=== PATIENT | male | born 1965 | race Caucasian/White ===

== ENCOUNTER 2019-02-17 07:39 | Emergency (ER) | payer MEDICAID ==
[~2019-02-17] VITALS: Ht 175.3 cm; Wt 99.4 kg
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
[2019-02-17] MEDS ORDERED: LORazepam 1MG TABLET PO ONE (08:30)
--- NOTE | 2019-02-17 08:33 | NUR ---
PT HAS C/O CP. STATES TO THIS RN THAT IT STARTED 45 MIN CLAIMS ADJUDICATOR TO ED. EKG COMPLETED. ABDOUL WOOD NOTIFIED.
[2019-02-17] MEDS ORDERED: LORazepam 1MG TABLET ONE (08:34)
[2019-02-17 08:35] LABS: BASOPHILS # (AUTO) 0.05 x10^3/uL (0-0.1); BASOPHILS % (AUTO) 1 % (0-1); EOSINOPHILS # (AUTO) 0.02 x10^3/uL (0-0.4); EOSINOPHILS % (AUTO) 0 % (1-7); LYMPHOCYTES # (AUTO) 1.12 x10^3/uL (1-3.4); LYMPHOCYTES % (AUTO) 14 % (22-44); MD NO; MEAN CORPUSCULAR HEMOGLOBIN 30.2 pg (27.5-34.5); MEAN CORPUSCULAR HGB CONC 33.4 g/dL (33.2-36.2); MEAN CORPUSCULAR VOLUME 90.3 fL (81-97); MEAN PLATELET VOLUME 10.4 fL (7.4-10.4); MONOCYTES # (AUTO) 0.39 x10^3/uL (0.2-0.8); MONOCYTES % (AUTO) 5 % (2-9); NEUTROPHILS # (AUTO) 6.16 x10^3/uL (1.8-6.8); NEUTROPHILS % (AUTO) 80 % (42-75); PLATELET COUNT 174 x10^3/uL (130-400); RED BLOOD COUNT 4.88 x10^6/uL (4.38-5.82); RED CELL DISTRIBUTION WIDTH 14.6 % (9.4-14.8)
--- NOTE | 2019-02-17 08:37 | NUR ---
PT PROVIDED W/ SI BREAKFAST TRAY.
[2019-02-17 08:46] LABS: ALBUMIN 4.5 g/dL (3.4-5.0); ANION GAP 9 mmol/L (5-15); CALCIUM 9.1 mg/dL (8.5-10.1); CHLORIDE 104 mmol/L (98-107); CREATININE 1.25 mg/dL (0.7-1.3)
[2019-02-17 08:48] LABS: SALICYLATE LEVEL < 1.7 mg/dL (2.8-20.0)
[2019-02-17] MEDS ORDERED: ABILIFY IM (08:51)
[2019-02-17] MEDS ORDERED: QUET25TA5 PO (08:51)
[2019-02-17] MEDS ORDERED: QUET200T4 PO (08:51)
[2019-02-17] MEDS ORDERED: WELLBUTRIN PO (08:51)
[2019-02-17] MEDS ORDERED: LAMICTAL PO (08:51)
[2019-02-17] MEDS ORDERED: ABILIFY PO (08:51)
[2019-02-17 08:56] LABS: AMPHETAMINE SCREEN, URINE Negative (Negative); BARBITURATE SCREEN, URINE Negative (Negative); BENZODIAZEPINE SCREEN, URINE Negative (Negative); CANNABINOID SCREEN, URINE Negative (Negative); COCAINE SCREEN, URINE Negative (Negative); METHADONE SCREEN, URINE Negative (Negative); OPIATE SCREEN, URINE Negative (Negative)
--- NOTE | 2019-02-17 09:56 | NUR ---
SHUBHAM NEFF. ISAI. SITTER REMAINS AT BEDSIDE. ROOM REMAINS SECURE.
[2019-02-17] MEDS ORDERED: ACETAMINOPHEN 325 MG TABLET PO ONE (10:00)
[2019-02-17] MEDS ORDERED: ACETAMINOPHEN 325 MG TABLET ONE (10:02)
--- NOTE | 2019-02-17 10:24 | NUR ---
PT RESTING ON AISHWARYA. ISAI. SITTER REMAINS AT BEDSIDE. ROOM REMAINS SECURE.
[2019-02-17] MEDS ORDERED: QUETIAPINE 25MG TABLET ONE (11:22)
--- NOTE | 2019-02-17 11:26 | NUR ---
Dr. Ren accepting. Mae DONOVAN accepting. Ready to go now.
[2019-02-17 11:27] VITALS: BP 125/79
--- NOTE | 2019-02-17 11:29 | NUR ---
REPORT RC'VD FROM ROB DONOVAN. PT AWAKE, CALM, WATCHING TV IN [facility]. C/O ANXIETY AND HEARING VOICES. STATES ATIVAN EARLIER HELPED "A LITTLE". ERP NOTIFIED, PT MEDICATED WITH HOME MED SEROQUEL. RV'WD POC WITH PT, ALL NEEDS ADDRESSED. VSS. SITTER OUTSIDE ROOM.
[2019-02-17] MEDS ORDERED: QUETIAPINE 25MG TABLET PO SCH (11:30)
--- NOTE | 2019-02-17 11:33 | NUR ---
THROUGHPUT: PT ACCEPTED ON 3E. FAXED OVER LEGAL HOLD
--- NOTE | 2019-02-17 12:30 | NUR ---
PT EATING LUNCH TRAY, CONVERSING WITH SITTER, CALM, COOPERATIVE.
[2019-02-17] MEDS ORDERED: BUPR100T7 PO (15:15)
[2019-02-17] MEDS ORDERED: QUET25TA70 PO (15:19)
[2019-02-17] MEDS ORDERED: ARIP30TA22 PO (15:19)
== END 2019-02-18 07:09 | disposition other institution (70) ==
LOC: ED 11:47
DX: F33.9 Major depressive disorder, recurrent, unspecified (principal)
CPT/HCPCS: 36415; 80048; 80307; 82040; 85025; 93005; 99284

== ENCOUNTER 2019-02-17 12:02 | Inpatient (IN) | payer MEDICAID ==
[~2019-02-17] VITALS: Ht 175.3 cm; Wt 100.4 kg
[~2019-02-17 12:02] MED LIST: ABILIFY IM; ABILIFY PO; LAMICTAL PO; QUET200T4 PO; QUET25TA5 PO; WELLBUTRIN PO
[2019-02-17] MEDS ORDERED: DOCUSATE 100 MG CAPSULE PO PRN (12:30)
[2019-02-17] MEDS ORDERED: POLYETHYLENE GLYCOL 17 GM PACKET PO PRN (12:30)
[2019-02-17] MEDS ORDERED: BISACODYL 10 MG SUPP PR PRN (12:30)
[2019-02-17] MEDS ORDERED: ONDANSETRON ODT 4 MG PO PRN (12:30)
[2019-02-17] MEDS ORDERED: FLU VACC QS2019-20 36MOS UP/PF 0.5 ML IM ONE (13:00)
[2019-02-17] MEDS: PLEASE ENTER HEIGHT AND WEIGHT MC SCH ×2 (13:30→20:30)
[2019-02-17 13:58] LABS: MICROSCOPIC NOT IND
[2019-02-17 14:01] LABS: CULTURE INDICATED? NO
[2019-02-17 14:22] VITALS: BP 128/75
[2019-02-17 14:52] LABS: TROPONIN I < 0.015 ng/mL (0.000-0.045)
[2019-02-17] MEDS ORDERED: BUPR100T7 PO (15:15)
[2019-02-17] MEDS ORDERED: ARIP30TA22 PO (15:19)
[2019-02-17] MEDS ORDERED: QUET25TA70 PO (15:19)
[2019-02-17] MEDS: METOPROLOL TARTRATE 25 MG TABLET PO SCH (17:58)
[2019-02-17 19:54] VITALS: BP 145/78
[2019-02-17] MEDS: ATORVASTATIN 20 MG TABLET PO SCH (20:30)
[2019-02-17] MEDS: LAMOTRIGINE 100 MG TABLET PO SCH (20:30)
[2019-02-18] MEDS: METOPROLOL TARTRATE 25 MG TABLET PO SCH ×2 (05:57→18:03)
[2019-02-18 06:56] LABS: CHOL/HDL RATIO 4.8; FREE T4 (FREE THYROXINE) 0.68 ng/dL (0.76-1.46); LDL/HDL RATIO 3.2 (0.5-3.0)
[2019-02-18 07:12] VITALS: BP 116/76
[2019-02-18] MEDS: NICOTINE 21 MG/24 HR PATCH.TD24 TD SCH (08:11)
[2019-02-18] MEDS: LAMOTRIGINE 100 MG TABLET PO SCH ×2 (08:11→08:14)
[2019-02-18] MEDS: ACETAMINOPHEN 325 MG TABLET PO PRN ×2 (08:21→20:15)
[2019-02-18] MEDS ORDERED: NICOTINE 7 MG/24 HR PATCH.TD24 TD SCH ×2 (09:00)
[2019-02-18] MEDS: LORazepam 1MG TABLET PO PRN (14:01)
[2019-02-18 19:12] VITALS: BP 147/87
[2019-02-18] MEDS: ATORVASTATIN 20 MG TABLET PO SCH (20:15)
[2019-02-18] MEDS: CARBAMAZEPINE XR 200 MG TABLET PO SCH (20:15)
[2019-02-18] MEDS: QUETIAPINE 100MG TABLET PO SCH (20:15)
[2019-02-19] MEDS: LORazepam 1MG TABLET PO PRN ×3 (00:35→20:18)
[2019-02-19] MEDS: METOPROLOL TARTRATE 25 MG TABLET PO SCH ×2 (06:13→17:59)
[2019-02-19 07:40] VITALS: BP 108/66
[2019-02-19] MEDS: ACETAMINOPHEN 325 MG TABLET PO PRN ×2 (08:46→20:18)
[2019-02-19] MEDS: NICOTINE 21 MG/24 HR PATCH.TD24 TD SCH (08:48)
[2019-02-19 18:00] VITALS: BP 119/69
[2019-02-19] MEDS: CARBAMAZEPINE XR 200 MG TABLET PO SCH (20:18)
[2019-02-19] MEDS: ATORVASTATIN 20 MG TABLET PO SCH (20:18)
[2019-02-19] MEDS: QUETIAPINE 100MG TABLET PO SCH (20:18)
[2019-02-19 20:26] VITALS: BP 110/69
[2019-02-20] MEDS: METOPROLOL TARTRATE 25 MG TABLET PO SCH ×4 (05:44→20:22)
[2019-02-20 07:40] VITALS: BP 159/97
[2019-02-20] MEDS: NICOTINE 21 MG/24 HR PATCH.TD24 TD SCH (07:59)
[2019-02-20] MEDS: LORazepam 1MG TABLET PO PRN ×2 (08:07→20:22)
[2019-02-20] MEDS: ACETAMINOPHEN 325 MG TABLET PO PRN ×2 (08:07→20:22)
[2019-02-20 19:35] VITALS: BP 138/80
[2019-02-20] MEDS: QUETIAPINE 100MG TABLET PO SCH (20:22)
[2019-02-20] MEDS: CARBAMAZEPINE XR 200 MG TABLET PO SCH (20:22)
[2019-02-20] MEDS: ATORVASTATIN 20 MG TABLET PO SCH (20:22)
[2019-02-21] MEDS: LORazepam 1MG TABLET PO PRN ×3 (00:12→20:13)
[2019-02-21 07:26] VITALS: BP 117/73
[2019-02-21] MEDS: METOPROLOL TARTRATE 25 MG TABLET PO SCH ×2 (08:41→20:13)
[2019-02-21] MEDS: NICOTINE 21 MG/24 HR PATCH.TD24 TD SCH (08:42)
[2019-02-21 19:43] VITALS: BP 122/77
[2019-02-21] MEDS: QUETIAPINE 100MG TABLET PO SCH (20:13)
[2019-02-21] MEDS: CARBAMAZEPINE XR 200 MG TABLET PO SCH (20:13)
[2019-02-21] MEDS: ATORVASTATIN 20 MG TABLET PO SCH (20:13)
[2019-02-21] MEDS: ACETAMINOPHEN 325 MG TABLET PO PRN (20:13)
[2019-02-22 07:02] VITALS: BP 135/79
[2019-02-22] MEDS: NICOTINE 21 MG/24 HR PATCH.TD24 TD SCH (08:14)
[2019-02-22] MEDS: METOPROLOL TARTRATE 25 MG TABLET PO SCH ×2 (08:14→16:59)
[2019-02-22 19:32] VITALS: BP 100/61
[2019-02-22] MEDS: CARBAMAZEPINE XR 200 MG TABLET PO SCH (20:01)
[2019-02-22] MEDS: QUETIAPINE 100MG TABLET PO SCH (20:02)
[2019-02-22] MEDS: ATORVASTATIN 20 MG TABLET PO SCH (20:03)
[2019-02-23] MEDS: METOPROLOL TARTRATE 25 MG TABLET PO SCH ×2 (06:05→18:31)
[2019-02-23] MEDS: LORazepam 1MG TABLET PO PRN ×2 (06:11→22:02)
[2019-02-23 07:21] VITALS: BP 109/73
[2019-02-23] MEDS: NICOTINE 21 MG/24 HR PATCH.TD24 TD SCH (08:33)
[2019-02-23 18:11] VITALS: BP 118/78
[2019-02-23] MEDS: CARBAMAZEPINE XR 200 MG TABLET PO SCH (22:03)
[2019-02-23] MEDS: QUETIAPINE 100MG TABLET PO SCH (22:03)
[2019-02-23] MEDS: ATORVASTATIN 20 MG TABLET PO SCH (22:03)
[2019-02-23] MEDS ORDERED: CALCIUM CARBONATE 500 MG TAB.CHEW PO PRN (23:30)
[2019-02-24] MEDS: METOPROLOL TARTRATE 25 MG TABLET PO SCH ×2 (05:24→17:43)
[2019-02-24 07:15] VITALS: BP 103/69
[2019-02-24] MEDS: NICOTINE 21 MG/24 HR PATCH.TD24 TD SCH (09:01)
[2019-02-24 19:34] VITALS: BP 129/83
[2019-02-24] MEDS: CARBAMAZEPINE XR 200 MG TABLET PO SCH (20:56)
[2019-02-24] MEDS: ATORVASTATIN 20 MG TABLET PO SCH (20:56)
[2019-02-24] MEDS: LORazepam 1MG TABLET PO PRN (20:56)
[2019-02-24] MEDS: QUETIAPINE 100MG TABLET PO SCH (20:57)
[2019-02-24] MEDS: PRAZOSIN 2 MG CAPSULE PO SCH (21:00)
[2019-02-25] MEDS: METOPROLOL TARTRATE 25 MG TABLET PO SCH ×2 (06:03→18:10)
[2019-02-25 07:22] VITALS: BP 122/83
[2019-02-25] MEDS: NICOTINE 21 MG/24 HR PATCH.TD24 TD SCH (08:25)
[2019-02-25 19:00] VITALS: BP 113/68
[2019-02-25] MEDS: LORazepam 1MG TABLET PO PRN (20:47)
[2019-02-25] MEDS: PRAZOSIN 2 MG CAPSULE PO SCH (20:47)
[2019-02-25] MEDS: QUETIAPINE 100MG TABLET PO SCH (20:47)
[2019-02-25] MEDS: CARBAMAZEPINE XR 200 MG TABLET PO SCH (20:48)
[2019-02-25] MEDS: ATORVASTATIN 20 MG TABLET PO SCH (20:48)
[2019-02-26] MEDS: METOPROLOL TARTRATE 25 MG TABLET PO SCH ×2 (06:05→18:17)
[2019-02-26 07:47] VITALS: BP 112/75
[2019-02-26] MEDS: LORazepam 1MG TABLET PO PRN ×3 (08:22→20:15)
[2019-02-26] MEDS: NICOTINE 21 MG/24 HR PATCH.TD24 TD SCH (08:22)
[2019-02-26] MEDS ORDERED: PRAZ2CAP2 PO (12:36)
[2019-02-26] MEDS ORDERED: NICO-487 TD (12:36)
[2019-02-26] MEDS ORDERED: METO25TA35 PO (12:36)
[2019-02-26] MEDS ORDERED: CARB200T2 PO (12:36)
[2019-02-26] MEDS ORDERED: QUET100T PO (12:36)
[2019-02-26] MEDS ORDERED: ATOR20TA37 PO (12:36)
[2019-02-26 18:17] VITALS: BP 137/80
[2019-02-26 19:40] VITALS: BP 118/76
[2019-02-26] MEDS: ATORVASTATIN 20 MG TABLET PO SCH (20:15)
[2019-02-26] MEDS: CARBAMAZEPINE XR 200 MG TABLET PO SCH (20:15)
[2019-02-26] MEDS: PRAZOSIN 2 MG CAPSULE PO SCH (20:16)
[2019-02-26] MEDS: QUETIAPINE 100MG TABLET PO SCH (20:16)
[2019-02-27] MEDS: LORazepam 1MG TABLET PO PRN (01:51)
[2019-02-27] MEDS: METOPROLOL TARTRATE 25 MG TABLET PO SCH (08:17)
[2019-02-27] MEDS: NICOTINE 21 MG/24 HR PATCH.TD24 TD SCH (08:17)
[2019-02-27 08:40] VITALS: BP 122/83
== END 2019-02-27 09:40 | disposition home or self-care (01) | DRG 885 ==
LOC: 3E 13:19
PROVIDERS: ADMIT Psychiatry & Neurology Psychosomatic Medicine; ATTEND Psychiatry & Neurology Psychosomatic Medicine
DX: F25.0 Schizoaffective disorder, bipolar type (principal); R45.851 Suicidal ideations; F23 Brief psychotic disorder; E78.5 Hyperlipidemia, unspecified; I10 Essential (primary) hypertension; F17.200 Nicotine dependence, unspecified, uncomplicated; R00.2 Palpitations; F41.0 Panic disorder [episodic paroxysmal anxiety]; F60.9 Personality disorder, unspecified; Z59.0 Homelessness; Z79.899 Other long term (current) drug therapy; Z81.8 Family history of other mental and behavioral disorders; Z88.0 Allergy status to penicillin; Z88.1 Allergy status to other antibiotic agents; Z23 Encounter for immunization
CPT/HCPCS: 36415; 80061; 81003; 82140; 82607; 84439; 84443; 84484; 90686

== ENCOUNTER → 2020-10-10 | Emergency (ER) | payer MEDICAID ==
[~2020-10-10] VITALS: Ht 177.8 cm; Wt 102.0 kg
[~2020-10-10] MED LIST changes: +ARIP30TA22 PO; +ATOR20TA37 PO; +BUPR-86 PO; +BUPR100T7 PO; +CARB200T2 PO; +GABA-827 PO; +GABA100C PO; +IBUPROFEN 600 MG TABLET ONE; +IBUPROFEN 600 MG TABLET PO ONE; +LAMO150T3 PO; +METO25TA35 PO; +NICO-587 TD; +PRAZ2CAP2 PO; +QUET100T PO; +QUET25TA2 PO
--- NOTE | 2020-10-10 17:15 | NUR ---
PT TO ROOM FROM [facility]. EMT TO SECURE ROOM.
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
--- NOTE | 2020-10-10 17:30 | NUR ---
REPORT FROM AIKEN, ASSUME CARE OF PT AT THIS TIME. SITTER AT DOORWAY FOR CLOSE OBS.
--- NOTE | 2020-10-10 17:43 | NUR ---
URINE COLLECTED/WALKED TO LAB. BELONGING LIST TO SITTER TO COMPLETE.
[2020-10-10 18:11] LABS: MICROSCOPIC NOT IND
[2020-10-10 18:12] LABS: BASOPHILS % (AUTO) 1 % (0-1); EOSINOPHILS % (AUTO) 1 % (1-7); LYMPHOCYTES % (AUTO) 12 % (22-44); MEAN CORPUSCULAR HEMOGLOBIN 28.8 pg (27.5-34.5); MEAN CORPUSCULAR HGB CONC 33.7 g/dL (33.2-36.2); MEAN PLATELET VOLUME 10.6 fL (7.4-10.4); MONOCYTES % (AUTO) 6 % (2-9); NEUTROPHILS % (AUTO) 80 % (42-75); PLATELET COUNT 104 x10^3/uL (130-400); RED BLOOD COUNT 4.55 x10^6/uL (4.38-5.82); RED CELL DISTRIBUTION WIDTH 15.7 % (9.4-14.8)
[2020-10-10 18:13] LABS: AMPHETAMINE SCREEN, URINE Negative (Negative); BARBITURATE SCREEN, URINE Negative (Negative); BENZODIAZEPINE SCREEN, URINE Negative (Negative); CANNABINOID SCREEN, URINE Negative (Negative); COCAINE SCREEN, URINE Negative (Negative); METHADONE SCREEN, URINE Negative (Negative); OPIATE SCREEN, URINE Negative (Negative)
[2020-10-10 18:22] LABS: ALANINE AMINOTRANSFERASE 28 U/L (12-78); ALBUMIN 3.6 g/dL (3.4-5.0); ANION GAP 4 mmol/L (5-15); CALCIUM 8.5 mg/dL (8.5-10.1); CHLORIDE 110 mmol/L (98-107); SALICYLATE LEVEL 2.4 mg/dL (2.8-20.0)
[2020-10-10 18:27] LABS: ALKALINE PHOSPHATASE 68 U/L (45-117); BILIRUBIN,TOTAL 0.5 mg/dL (0.2-1.0); CREATININE 1.56 mg/dL (0.7-1.3); TOTAL PROTEIN 6.8 g/dL (6.4-8.2)
--- NOTE | 2020-10-10 18:32 | NUR ---
ALL RESULTS BACK, PT FOR RECHECK.
--- NOTE | 2020-10-10 18:37 | NUR ---
MEAL TRAY PROVIDED.
--- NOTE | 2020-10-10 19:04 | NUR ---
PT RESTING ON HOSPITAL BED IN NAD. PT CALM & COOPERATIVE. PT STATES HE HAS SOME SINUS PRESSURE & A H/A "CAN I HAVE SOME NYQUIL". INFORMED PT WILL ASK FOR ORDERS. SITTER OUTSIDE OF ROOM. WILL CTM.
--- NOTE | 2020-10-10 19:10 | NUR ---
REPORT TO DONATO, TRANSFER OF CARE AT THIS TIME.
--- NOTE | 2020-10-10 21:05 | NUR ---
pt resting on hospital bed. rr even non labored. telepsych in room, pt states it hasnt turned on yet..and its been over an hour. sitter outside of room. will ctm.
--- NOTE | 2020-10-10 21:36 | NUR ---
pt becoming upset..."i asked you 5 hours ago for something for my head". informed pt that no order has been placed for meds. pt given water & crackers. . sitter remains outside of room. will ctm.
--- NOTE | 2020-10-10 21:37 | NUR ---
telepsych called, experincing delay. will see pt peri.
--- NOTE | 2020-10-10 22:00 | NUR ---
PT C/O FEELING HOT, REQUESTING ROOM TEMP BE TURNED DOWN. PT IS AFEBRILE. SITTER AT BS.
--- NOTE | 2020-10-10 22:34 | NUR ---
PT GIVEN MOTHER. LIGHTS TURNED DOWN. SITTER OUTSIDE OF ROOM. PT UPDATED Remington BAKERPSYCH. Addendum: 10/11/20 at 0226 by TSHUTES PT GIVEN CRACKERS & JUICE. LIGHTS TURNED DOWN. SITTER OUTSIDE OF ROOM. PT UPDATED Remington Macedo TELEPSYCH.
--- NOTE | 2020-10-10 23:00 | NUR ---
PT SLEEPING, RR EVEN NON LABORED. SITTER AT BS. WILL CTM.
--- NOTE | 2020-10-11 00:35 | NUR ---
THROUGHPUT RN CALLED FOR ETA OF TELEPSYCH DUE TO PT BEING SET UP FOR CONSULT SINCE BEFORE 2099, TELEPSYCH UNABLE TO PROVIDE ETA AT THIS TIME. C/O HIGHER THAN USUAL CALL VOLUMES
--- NOTE | 2020-10-11 01:30 | NUR ---
BREAK RN: PT RESTING IN ROOM. NO ACUTE DISTRESS NOTED. SITTER AT DOOR. WILL CONTINUE TO MONITOR WHILE PRIMARY RN IS ON BREAK.
--- NOTE | 2020-10-11 01:57 | NUR ---
REPORT GIVEN TO ZION SEWELL
--- NOTE | 2020-10-11 02:05 | NUR ---
PT SLEEPING, RR EVEN NON LABORED. SITTER OUTSIDE OF ROOM
--- NOTE | 2020-10-11 03:10 | NUR ---
BEDSIDE REPORT FROM DONATO RN, PT CARE TRANSFERRED AT THIS TIME. PT NAD, RESTING ON GURNEY, ROOM SECURED, SITTER IN LINE OF SIGHT, HOSPITAL BED ORDERED AT THIS TIME. MADDY.
--- NOTE | 2020-10-11 04:01 | NUR ---
TELEPSYCH ON SCREEN WITH PT AT THIS TIME. PT NAD, RESTING ON GURNEY TALKING TO PSYCHIATRIST, ROOM SECURED, SITTER IN LINE OF SIGHT, BED IN LOWEST, WCTM. BREAKFAST TRAY ORDERED AT THIS TIME.
--- NOTE | 2020-10-11 07:00 | NUR ---
BEDSIDE REPORT FROM ZION FREGOSO FOR TRANSFER OF PATIENT CARE.
--- NOTE | 2020-10-11 07:01 | NUR ---
report to graham teixeira, pt care transferred at this time
--- NOTE | 2020-10-11 07:04 | NUR ---
PATIENT RESTING IN GURNEY, EYES CLOSED, RESP EVEN AND UNLABORED, SUICIDE PRECAUTIONS IN PLACE, SITTER IN LINE OF SIGHT. Addendum: 10/11/20 at 0704 by SONALRAZina WARNER TODD.
--- NOTE | 2020-10-11 08:16 | NUR ---
PATIENT RESTING IN GURNEY, EYES CLOSED, RESP EVEN AND UNLABORED, SUICIDE PRECAUTIONS IN PLACE, SITTER IN LINE OF SIGHT. BREAKFAST TRAY AT BEDSIDE.
--- NOTE | 2020-10-11 09:47 | NUR ---
BREAKFAST TRAY PROVIDED, VSS, PATIENT DENIES PAIN, ENDORSES THOUGHTS OF HARMING HIMSELF BUT DOES NOT HAVE A SPECIFIC PLAN. SUICIDE PRECAUTIONS IN PLACE, SITTER IN LINE OF SIGHT.
--- NOTE | 2020-10-11 10:45 | NUR ---
PATIENT RESTING IN HOSPITAL BED, EYES CLOSED, RESP EVEN AND UNLABORED, SUICIDE PRECAUTIONS IN PLACE, SITTER IN LINE OF SIGHT.
--- NOTE | 2020-10-11 11:43 | NUR ---
COVID SWAB COLLECTED AND WALKED TO LAB. SUICIDE PRECAUTIONS IN PLACE, SITTER IN LINE OF SIGHT.
--- NOTE | 2020-10-11 12:36 | NUR ---
PATIENT RESTING IN HOSPITAL BED, EYES CLOSED, RESP EVEN AND UNLABORED, SUICIDE PRECAUTIONS IN PLACE, SITTER IN LINE OF SIGHT.
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
--- NOTE | 2020-10-11 13:45 | NUR ---
report to Brianna DONOVAN for lunch
--- NOTE | 2020-10-11 14:07 | NUR ---
BREAK RN: PT RESTING IN ROOM. NO ACUTE DISTRESS NOTED. SITTER AT DOOR. WILL CONTINUE TO MONITOR WHILE PRIMARY RN IS ON BREAK.
--- NOTE | 2020-10-11 14:28 | NUR ---
report given to ZION Pearson
--- NOTE | 2020-10-11 14:29 | NUR ---
attempting to call report to [facility]
--- NOTE | 2020-10-11 14:32 | NUR ---
meal tray has been delivered per request. report called to Citlali DONOVAN
[2020-10-11 14:36] VITALS: BP 139/80
== END ==
LOC: ED 21:44 → EDIP 10-11 05:18 → UNDOADMOB 10-11 05:18
DX: R45.851 Suicidal ideations (principal); R44.0 Auditory hallucinations; F32.9 Major depressive disorder, single episode, unspecified; R25.8 Other abnormal involuntary movements
CPT/HCPCS: 36415; 80053; 80299; 80307; 80320; 80329; 81003; 85025; 87426; 99285; G0480

== ENCOUNTER 2020-10-11 12:03 | Inpatient (IN) | payer MEDICAID ==
[~2020-10-11] VITALS: Ht 175.3 cm; Wt 98.2 kg
[~2020-10-11 12:03] MED LIST changes: -BUPR-86 PO; -GABA-827 PO; -GABA100C PO; -IBUPROFEN 600 MG TABLET ONE; -IBUPROFEN 600 MG TABLET PO ONE; -LAMO150T3 PO
[2020-10-11] MEDS ORDERED: POLYETHYLENE GLYCOL 17 GM PACKET PO PRN (13:30)
[2020-10-11] MEDS ORDERED: ONDANSETRON ODT 4 MG PO PRN (13:30)
[2020-10-11] MEDS ORDERED: BISACODYL 10 MG SUPP PR PRN (13:30)
[2020-10-11] MEDS ORDERED: DOCUSATE 100 MG CAPSULE PO PRN (13:30)
[2020-10-11 15:00] VITALS: BP 144/94
[2020-10-11] MEDS ORDERED: PLEASE ENTER HEIGHT AND WEIGHT MC SCH (15:00)
[2020-10-11] MEDS: LORATADINE 10 MG TABLET PO PRN (15:42)
[2020-10-11] MEDS: ACETAMINOPHEN 325 MG TABLET PO PRN ×2 (15:42→20:19)
[2020-10-11] MEDS: NICOTINE GUM 2 MG BC PRN (15:49)
[2020-10-11] MEDS ORDERED: BUPR-86 PO (16:22)
[2020-10-11] MEDS ORDERED: LAMO150T3 PO (16:24)
[2020-10-11] MEDS ORDERED: QUET25TA2 PO (16:24)
[2020-10-11] MEDS ORDERED: GABA-827 PO (16:25)
[2020-10-11] MEDS ORDERED: GABA100C PO (16:30)
[2020-10-11] MEDS: METOPROLOL TARTRATE 25 MG TAB PO SCH (17:41)
[2020-10-11 18:25] VITALS: BP 108/66
[2020-10-11] MEDS: ATORVASTATIN 20 MG TABLET PO SCH (20:19)
[2020-10-12 05:58] LABS: CHOL/HDL RATIO 4.2; LDL/HDL RATIO 2.5 (0.5-3.0)
[2020-10-12 06:16] VITALS: BP 133/80
[2020-10-12] MEDS: METOPROLOL TARTRATE 25 MG TAB PO SCH ×2 (06:19→17:38)
[2020-10-12] MEDS: ACETAMINOPHEN 325 MG TABLET PO PRN ×2 (06:21→20:19)
[2020-10-12] MEDS: LORATADINE 10 MG TABLET PO PRN (06:21)
[2020-10-12 07:29] VITALS: BP 128/78
[2020-10-12 17:34] VITALS: BP 128/77
[2020-10-12] MEDS: PSEUDOEPHEDRINE 30 MG TABLET PO PRN (18:16)
[2020-10-12 19:52] VITALS: BP 135/76
[2020-10-12] MEDS: ATORVASTATIN 20 MG TABLET PO SCH (20:19)
[2020-10-12] MEDS: QUETIAPINE 100MG TABLET PO SCH (20:19)
[2020-10-12] MEDS: LAMOTRIGINE 25 MG TABLET PO SCH (20:19)
[2020-10-13 05:58] VITALS: BP 115/73
[2020-10-13] MEDS: METOPROLOL TARTRATE 25 MG TAB PO SCH ×2 (06:00→20:17)
[2020-10-13 07:35] VITALS: BP 101/61
[2020-10-13] MEDS: ARIPIPRAZOLE 10 MG TABLET PO SCH (09:49)
[2020-10-13] MEDS: LAMOTRIGINE 25 MG TABLET PO SCH ×2 (09:49→20:17)
[2020-10-13] MEDS: ACETAMINOPHEN 325 MG TABLET PO PRN (17:48)
[2020-10-13] MEDS: LORATADINE 10 MG TABLET PO PRN (17:48)
[2020-10-13 18:34] VITALS: BP 101/61
[2020-10-13] MEDS: QUETIAPINE 100MG TABLET PO SCH (20:17)
[2020-10-13] MEDS: ATORVASTATIN 20 MG TABLET PO SCH (20:17)
[2020-10-14 05:48] VITALS: BP 123/75
[2020-10-14] MEDS: ACETAMINOPHEN 325 MG TABLET PO PRN ×2 (05:52→20:18)
[2020-10-14] MEDS: METOPROLOL TARTRATE 25 MG TAB PO SCH ×2 (05:52→18:09)
[2020-10-14] MEDS: PSEUDOEPHEDRINE 30 MG TABLET PO PRN (05:52)
[2020-10-14 07:46] VITALS: BP 103/67
[2020-10-14] MEDS: ARIPIPRAZOLE 10 MG TABLET PO SCH (08:38)
[2020-10-14] MEDS: LAMOTRIGINE 25 MG TABLET PO SCH ×2 (08:38→20:18)
[2020-10-14 19:38] VITALS: BP 130/76
[2020-10-14] MEDS: QUETIAPINE 100MG TABLET PO SCH (20:18)
[2020-10-14] MEDS: ATORVASTATIN 20 MG TABLET PO SCH (20:18)
[2020-10-14] MEDS: NICOTINE GUM 2 MG BC PRN (20:18)
[2020-10-15 05:30] VITALS: BP 133/76
[2020-10-15] MEDS: METOPROLOL TARTRATE 25 MG TAB PO SCH ×2 (05:45→17:38)
[2020-10-15] MEDS: ARIPIPRAZOLE 10 MG TABLET PO SCH (08:43)
[2020-10-15] MEDS: LAMOTRIGINE 25 MG TABLET PO SCH ×2 (08:43→19:57)
[2020-10-15 19:49] VITALS: BP 128/74
[2020-10-15] MEDS: ATORVASTATIN 20 MG TABLET PO SCH (19:57)
[2020-10-15] MEDS: QUETIAPINE 100MG TABLET PO SCH (19:57)
[2020-10-16 05:44] VITALS: BP 118/75
[2020-10-16] MEDS: LORATADINE 10 MG TABLET PO PRN (05:47)
[2020-10-16] MEDS: ACETAMINOPHEN 325 MG TABLET PO PRN (05:47)
[2020-10-16] MEDS: METOPROLOL TARTRATE 25 MG TAB PO SCH ×2 (05:49→18:49)
[2020-10-16 07:33] VITALS: BP 118/77
[2020-10-16] MEDS: LAMOTRIGINE 25 MG TABLET PO SCH ×2 (09:12→20:49)
[2020-10-16] MEDS: ARIPIPRAZOLE 10 MG TABLET PO SCH (09:12)
[2020-10-16] MEDS: NICOTINE GUM 2 MG BC PRN (09:19)
[2020-10-16 19:41] VITALS: BP 121/80
[2020-10-16] MEDS: ATORVASTATIN 20 MG TABLET PO SCH (20:49)
[2020-10-16] MEDS ORDERED: QUETIAPINE 100MG TABLET PO SCH (21:00)
[2020-10-17] VITALS (9 sets, daily range): BP systolic 102–118; BP diastolic 58–78
[2020-10-17] MEDS: METOPROLOL TARTRATE 25 MG TAB PO SCH (05:35)
[2020-10-17] MEDS: LAMOTRIGINE 25 MG TABLET PO SCH (09:39)
[2020-10-17] MEDS: ARIPIPRAZOLE 10 MG TABLET PO SCH (09:39)
[2020-10-17] MEDS: NICOTINE GUM 2 MG BC PRN (12:13)
[2020-10-17] MEDS ORDERED: HYDROXYZINE PAMOATE 25MG CAP ONE (12:21)
[2020-10-17] MEDS ORDERED: HYDROXYZINE PAMOATE 25MG CAP PO PRN (12:30)
[2020-10-17] MEDS ORDERED: QUETIAPINE 100MG TABLET PO SCH (21:00)
== END 2020-10-17 13:00 | disposition left against medical advice (07) | DRG 885 ==
LOC: 3E 14:47
PROVIDERS: ADMIT Psychiatry & Neurology Psychosomatic Medicine; ATTEND Psychiatry & Neurology Psychosomatic Medicine
DX: F25.0 Schizoaffective disorder, bipolar type (principal); R45.851 Suicidal ideations; K59.00 Constipation, unspecified; E78.5 Hyperlipidemia, unspecified; F17.210 Nicotine dependence, cigarettes, uncomplicated; I10 Essential (primary) hypertension; J00 Acute nasopharyngitis [common cold]; R56.9 Unspecified convulsions; Z81.8 Family history of other mental and behavioral disorders; Z20.822 Contact with and (suspected) exposure to COVID-19; Z91.81 History of falling; Z53.29 Procedure and treatment not carried out because of patient's decision for other reasons
CPT/HCPCS: 36415; 71045; 80061; 93005; U0005; U0003